=== PATIENT | female | born 1975 | race Caucasian/White ===

== ENCOUNTER 2017-04-27 16:51 | Emergency (ER) | payer OTHER ==
[~2017-04-27] VITALS: Ht 142.2 cm; Wt 70.2 kg
[~2017-04-27 16:51] MED LIST: AMBIEN10 MG PO; AMBIEN5 M1 PO; DILANTIN100 MG PO; METHADONE10 MG PO; MS CONTIN,ORAMO60 MG PO; OXYCODONE15 MG PO; OXYCODONE30 MG PO; OXYCONTIN80 MG PO; VANCOMYCIN IV
[2017-04-27 17:55] LABS: HEMATOCRIT 37.2 % (36.0-46.0); MCH 28.2 PG (29.0-34.0); MCHC 32.3 G/DL (30.0-36.0); MCV 87.3 FL (83-99); MEAN PLAT.VOLUME 9.1 uM^3 (9.5-12.4); PLATELET COUNT 335 K/uL (156-360); RBC DIS.WIDTH-CV 13.7 % (11.8-14.6); RBC DIS.WIDTH-SD 44.4 % (39-53); RED BLOOD COUNT 4.26 M/uL (3.80-5.20); WHITE BLOOD COUNT 15.9 K/uL (4.1-10.2)
[2017-04-27 18:12] LABS: CHLORIDE 104 mEq/L (99-109); POTASSIUM 4.4 mEq/L (3.7-5.4); SODIUM 133 mEq/L (136-147)
[2017-04-27 18:14] LABS: GLUCOSE 121 mg/dL (70-99)
[2017-04-27 18:15] LABS: ANION GAP 10 MEQ/L (2-14)
[2017-04-27 18:16] LABS: TOTAL BILIRUBIN 0.3 mg/dL (0.0-1.0)
[2017-04-27 18:18] LABS: ALKALINE PHOSPHATASE 80 IU/L (3-129); GFR ESTIMATE (CALCULATED) > 59 mL/min/
[2017-04-27 18:19] LABS: UREA NITROGEN (BUN) 12 mg/dL (9-23)
[2017-04-27 18:30] LABS: QUANTITATIVE HCG < 4.0 MIU/ML
[2017-04-27 18:44] LABS: ADD MIUA? YES; BILIRUBIN NEGATIVE; BLOOD NEGATIVE; COLOR YELLOW ((YELLOW)); GLUCOSE (STRIP) NEGATIVE; KETONES 5; LEUKOCYTES NEGATIVE; NITRITE NEGATIVE; PROTEIN (STRIP) 30; SPECIFIC GRAVITY 1.028 (1.000-1.030)
[2017-04-27 18:59] LABS: BACTERIA NONE SEEN /HPF; EPITHELIAL CELLS 2+ /HPF; MUCUS 2+ /LPF; RED BLOOD CELLS 0-5 /HPF (0-5); UCUL ADDED? NO; WHITE BLOOD CELLS 0-5 /HPF (0-5)
[2017-04-27] MEDS ORDERED: BENTYL10 MG PO (20:18)
[2017-04-27] MEDS ORDERED: ZOFRAN ODT4 MG PO (20:18)
[2017-04-27 20:51] VITALS: BP 119/73
== END 2017-04-27 20:52 | disposition home or self-care (01) ==
LOC: EME 16:51
PROVIDERS: Nurse Practitioner Family
DX: R10.9 Unspecified abdominal pain (principal); R11.0 Nausea; Z87.442 Personal history of urinary calculi; Z96.643 Presence of artificial hip joint, bilateral; F11.20 Opioid dependence, uncomplicated; Z88.1 Allergy status to other antibiotic agents; Z88.8 Allergy status to other drugs, medicaments and biological substances
CPT/HCPCS: 74177; 80053; 81003; 84702; 85027; 99281; 99285; J2270; J2765; J7030